=== PATIENT | male | born 1970 | race Hispanic/Latino ===

== ENCOUNTER 2021-05-08 15:32 | Inpatient (IN) | payer SELFPAY ==
[~2021-05-08] VITALS: Ht 152.4 cm; Wt 68.0 kg
[2021-05-08 15:34] VITALS: BP 129/90
[2021-05-08] MEDS ORDERED: ONDANSETRON 4MG INJ IVP ONE (16:00)
[2021-05-08] MEDS ORDERED: MORPHINE 4 MG SYG IV ONE ×2 (16:00→19:30)
[2021-05-08 16:25] LABS: BASOPHILS % (AUTO) 0.3 % (0.0-5.0); EOSINOPHILS % (AUTO) 0.1 % (0.0-8.0); HEMATOCRIT 47.2 % (42-54); LYMPHOCYTES % (AUTO) 3.3 % (21.0-51.0); MEAN CORPUSCULAR HEMOGLOBIN 32.7 pg (27.0-33.0); MEAN CORPUSCULAR HGB CONC 34.1 g/dL (32.0-36.0); MEAN CORPUSCULAR VOLUME 95.9 fL (79-99); MONOCYTES % (AUTO) 4.2 % (3.0-13.0); NEUTROPHILS % (AUTO) 91.5 % (40.0-77.0); PLATELET COUNT (AUTO) 264 K/uL (130-400); RED BLOOD CELL COUNT(AUTO) 4.92 MIL/uL (4.50-6.20); RED CELL DISTRIBUTION WIDTH 11.9 % (11.0-15.5); WHITE BLOOD COUNT (AUTO) 16.6 K/uL (4.8-10.8)
[2021-05-08 16:43] LABS: POTASSIUM 3.5 mmol/L (3.5-5.1)
[2021-05-08 16:48] LABS: ALBUMIN 3.6 g/dL (3.5-5.0); BILIRUBIN,TOTAL 0.6 mg/dL (0.2-1.0); TOTAL PROTEIN, SERUM 8.5 g/dL (6.0-8.3)
[2021-05-08] MEDS ORDERED: IOHEXOL-350 75 ML VIAL IV ONE (16:48)
[2021-05-08 17:02] LABS: APPEARANCE,URINE Clear (CLEAR); BILIRUBIN,URINE Small (NEGATIVE); COLOR,URINE Dark Yellow (YELLOW); GLUCOSE, URINE (UA) Negative (NEGATIVE); KETONES,URINE >=160 mg/dL (NEGATIVE); LEUKOCYTE ESTERASE ,URINE Small (NEGATIVE); NITRATE,URINE Negative (NEGATIVE); OCCULT BLOOD,URINE Trace (NEGATIVE); PH,URINE 5.5 (5.0-8.0); PROTEIN,URINE 300 mg/dL (NEGATIVE)
[2021-05-08 17:10] LABS: AMPHET/METH SCREEN,URINE NEGATIVE (NEGATIVE); BARBITURATE SCREEN, URINE NEGATIVE (NEGATIVE); BENZODIAZEPINES SCREEN,URINE POSITIVE (NEGATIVE); CANNABINOID SCREEN,URINE POSITIVE (NEGATIVE); COCAINE SCREEN,URINE NEGATIVE (NEGATIVE); OPIATE SCREEN,URINE POSITIVE (NEGATIVE); PHENCYCLIDINE SCREEN,URINE NEGATIVE (NEGATIVE)
[2021-05-08 17:19] LABS: BACTERIA,URINE Few /HPF (None Seen); RBC,URINE None Seen /HPF (0-1); SQUAMOUS EPITHELIAL CELL,UR None Seen /HPF (0-2); WBC,URINE 0-1 /HPF (0-1)
[2021-05-08] MEDS ORDERED: ZOSYN 3.375GM+NS 50ML 3.38 GM in 0.9%NACL 50ML 50 ML IV SCH ×2 (18:30→19:30)
[2021-05-08 18:58] VITALS: BP 154/96
[2021-05-08] MEDS ORDERED: ONDANSETRON 4MG INJ IV PRN (19:00)
[2021-05-08] MEDS ORDERED: ZOSYN 3.375GM +NS 50ML IV ONE (19:00)
[2021-05-08] MEDS ORDERED: 0.9%NACL 50ML 50 ML IV ONE (19:00)
[2021-05-08] MEDS ORDERED: NITROGLYCERIN 0.4 MG SL TAB SL PRN (19:00)
[2021-05-08] MEDS ORDERED: 0.9%NACL 1000ML 1,000 ML IV SCH (19:00)
[2021-05-08 19:09] VITALS: BP 131/83
[2021-05-08 20:00] LABS: CHOLESTEROL 162 mg/dL (<200); HDL CHOLESTEROL 25 mg/dL (29-71); LDL DIRECT 97 mg/dL (0-99); TRIGLYCERIDES 118 mg/dL (30-200)
[2021-05-08] MEDS ORDERED: MORPHINE 4 MG SYG ONE (20:49)
[2021-05-08] MEDS: LACTATED RINGERS 1000ML 1,000 ML IV SCH (20:58)
[2021-05-08] MEDS ORDERED: 0.9%NACL 1000ML 1,000 ML IV ONE (21:00)
[2021-05-08] MEDS: FAMOTIDINE 20MG VIAL IV SCH (21:10)
[2021-05-08] MEDS ORDERED: METRONIDAZOLE 500MG/100ML BAG 100 ML IVPB SCH (22:00)
[2021-05-08] MEDS: ZOSYN 3.375GM +NS 50ML IV SCH ×2 (22:24→22:25)
[2021-05-08 22:26] VITALS: BP 130/81
[2021-05-09] MEDS: MORPHINE 2 MG SYG IV PRN ×2 (00:19→20:55)
[2021-05-09 00:34] VITALS: BP 144/97
[2021-05-09] MEDS: ZOSYN 3.375GM +NS 50ML IV SCH ×3 (03:29→20:56)
[2021-05-09 04:31] VITALS: BP 143/95
[2021-05-09 08:00] VITALS: BP 134/91
[2021-05-09] MEDS: FAMOTIDINE 20MG VIAL IV SCH ×2 (08:58→20:55)
[2021-05-09 10:19] LABS: BASOPHILS % (AUTO) 0.2 % (0.0-5.0); EOSINOPHILS % (AUTO) 0.1 % (0.0-8.0); HEMATOCRIT 45.4 % (42-54); LYMPHOCYTES % (AUTO) 6.1 % (21.0-51.0); MEAN CORPUSCULAR HEMOGLOBIN 31.9 pg (27.0-33.0); MEAN CORPUSCULAR HGB CONC 33.7 g/dL (32.0-36.0); MEAN CORPUSCULAR VOLUME 94.6 fL (79-99); MONOCYTES % (AUTO) 7.6 % (3.0-13.0); NEUTROPHILS % (AUTO) 84.7 % (40.0-77.0); PLATELET COUNT (AUTO) 290 K/uL (130-400); WHITE BLOOD COUNT (AUTO) 17.4 K/uL (4.8-10.8)
[2021-05-09 10:26] LABS: POTASSIUM 3.9 mmol/L (3.5-5.1)
[2021-05-09 10:30] LABS: MAGNESIUM 2.1 mg/dL (1.80-2.40); PHOSPHORUS 3.3 mg/dL (2.5-4.9)
[2021-05-09 11:26] LABS: ERYTHROCYTE SEDIMENTATION RATE 63 MM/HR (0-15)
[2021-05-09 11:49] VITALS: BP 129/94
[2021-05-09] MEDS: FLUCONAZOLE 200 MG/NS 100 ML 100 ML IV SCH (15:06)
[2021-05-09 15:59] VITALS: BP 116/87
[2021-05-09 19:57] VITALS: BP 138/99
[2021-05-09] MEDS: LACTATED RINGERS 1000ML 1,000 ML IV SCH ×2 (20:56→22:51)
[2021-05-10] VITALS (7 sets, daily range): BP systolic 123–147; BP diastolic 85–99
[2021-05-10] MEDS: ZOSYN 3.375GM +NS 50ML IV SCH ×3 (04:39→21:05)
[2021-05-10] MEDS: FAMOTIDINE 20MG VIAL IV SCH ×2 (09:17→21:05)
[2021-05-10 11:05] LABS: HEMATOCRIT 41.6 % (42-54); MEAN CORPUSCULAR HGB CONC 33.9 g/dL (32.0-36.0); MEAN CORPUSCULAR VOLUME 94.5 fL (79-99); PLATELET COUNT (AUTO) 317 K/uL (130-400); RED CELL DISTRIBUTION WIDTH 12.1 % (11.0-15.5); WHITE BLOOD COUNT (AUTO) 10.6 K/uL (4.8-10.8)
[2021-05-10 12:21] LABS: EOSINOPHILS % (MANUAL) 3 % (1-6); LYMPHOCYTES % (MANUAL) 7 % (22-44); MAN.DIFF COMMENT-IMPRESSION MANUAL DIFFERENTIAL; MONOCYTES % (MANUAL) 9 % (2-9); PLATELET MORPHOLOGY COMMENT ADEQUATE; SEGMENTED NEUTROPHILS % 81 % (40-70)
[2021-05-10] MEDS: FLUCONAZOLE 200 MG/NS 100 ML 100 ML IV SCH (14:16)
[2021-05-10] MEDS: MORPHINE 2 MG SYG IV PRN (21:06)
[2021-05-11] MEDS: LACTATED RINGERS 1000ML 1,000 ML IV SCH ×2 (01:44→14:31)
[2021-05-11] MEDS: MORPHINE 2 MG SYG IV PRN ×4 (02:11→21:10)
[2021-05-11 04:00] VITALS: BP 117/78
[2021-05-11] MEDS: ZOSYN 3.375GM +NS 50ML IV SCH ×3 (05:13→21:10)
[2021-05-11 05:59] LABS: BASOPHILS % (AUTO) 0.6 % (0.0-5.0); HEMATOCRIT 41.6 % (42-54); LYMPHOCYTES % (AUTO) 21.2 % (21.0-51.0); MEAN CORPUSCULAR HEMOGLOBIN 32.8 pg (27.0-33.0); MEAN CORPUSCULAR HGB CONC 33.7 g/dL (32.0-36.0); MEAN CORPUSCULAR VOLUME 97.4 fL (79-99); MONOCYTES % (AUTO) 11.1 % (3.0-13.0); NEUTROPHILS % (AUTO) 63.5 % (40.0-77.0); PLATELET COUNT (AUTO) 332 K/uL (130-400); RED BLOOD CELL COUNT(AUTO) 4.27 MIL/uL (4.50-6.20); RED CELL DISTRIBUTION WIDTH 12.3 % (11.0-15.5); WHITE BLOOD COUNT (AUTO) 7.8 K/uL (4.8-10.8)
[2021-05-11 06:13] LABS: ALBUMIN 2.6 g/dL (3.5-5.0); BILIRUBIN,TOTAL 0.4 mg/dL (0.2-1.0); POTASSIUM 3.9 mmol/L (3.5-5.1); TOTAL PROTEIN, SERUM 7.3 g/dL (6.0-8.3)
[2021-05-11 08:00] VITALS: BP 134/69
[2021-05-11] MEDS: FAMOTIDINE 20MG VIAL IV SCH ×2 (09:32→21:10)
[2021-05-11 12:00] VITALS: BP 145/90
[2021-05-11] MEDS: FLUCONAZOLE 200 MG/NS 100 ML 100 ML IV SCH (14:31)
[2021-05-11 16:00] VITALS: BP 147/104
[2021-05-11 20:10] VITALS: BP 140/73
[2021-05-11 23:58] VITALS: BP 143/83
[2021-05-12 03:41] VITALS: BP 127/88
[2021-05-12] MEDS: LACTATED RINGERS 1000ML 1,000 ML IV SCH ×2 (03:50→18:07)
[2021-05-12] MEDS: MORPHINE 2 MG SYG IV PRN ×2 (04:52→09:53)
[2021-05-12 05:28] LABS: BASOPHILS % (AUTO) 0.7 % (0.0-5.0); EOSINOPHILS % (AUTO) 2.8 % (0.0-8.0); HEMATOCRIT 43.9 % (42-54); LYMPHOCYTES % (AUTO) 23.1 % (21.0-51.0); MEAN CORPUSCULAR HEMOGLOBIN 31.9 pg (27.0-33.0); MEAN CORPUSCULAR VOLUME 96.5 fL (79-99); MONOCYTES % (AUTO) 13.6 % (3.0-13.0); NEUTROPHILS % (AUTO) 59.2 % (40.0-77.0); PLATELET COUNT (AUTO) 324 K/uL (130-400); RED BLOOD CELL COUNT(AUTO) 4.55 MIL/uL (4.50-6.20); RED CELL DISTRIBUTION WIDTH 12.2 % (11.0-15.5); WHITE BLOOD COUNT (AUTO) 8.2 K/uL (4.8-10.8)
[2021-05-12 05:51] LABS: ALBUMIN 2.7 g/dL (3.5-5.0); BILIRUBIN,TOTAL 0.4 mg/dL (0.2-1.0); POTASSIUM 3.9 mmol/L (3.5-5.1); TOTAL PROTEIN, SERUM 7.4 g/dL (6.0-8.3)
[2021-05-12 07:30] VITALS: BP 153/91
[2021-05-12] MEDS: FAMOTIDINE 20MG VIAL IV SCH ×2 (09:50→21:20)
[2021-05-12 11:00] VITALS: BP 140/90
[2021-05-12] MEDS: FLUCONAZOLE 200 MG/NS 100 ML 100 ML IV SCH (13:16)
[2021-05-12] MEDS: ZOSYN 3.375GM +NS 50ML IV SCH ×2 (13:17→21:20)
[2021-05-12 16:00] VITALS: BP 140/101
[2021-05-12 19:51] VITALS: BP 149/98
[2021-05-12 23:33] VITALS: BP 120/84
[2021-05-13 03:32] VITALS: BP 114/79
[2021-05-13] MEDS: ZOSYN 3.375GM +NS 50ML IV SCH ×3 (04:50→20:05)
[2021-05-13 05:47] LABS: BASOPHILS % (AUTO) 0.8 % (0.0-5.0); EOSINOPHILS % (AUTO) 4.4 % (0.0-8.0); HEMATOCRIT 42.8 % (42-54); LYMPHOCYTES % (AUTO) 27.2 % (21.0-51.0); MEAN CORPUSCULAR HEMOGLOBIN 31.8 pg (27.0-33.0); MEAN CORPUSCULAR HGB CONC 33.2 g/dL (32.0-36.0); MONOCYTES % (AUTO) 11.1 % (3.0-13.0); NEUTROPHILS % (AUTO) 55.8 % (40.0-77.0); PLATELET COUNT (AUTO) 354 K/uL (130-400); RED BLOOD CELL COUNT(AUTO) 4.46 MIL/uL (4.50-6.20); WHITE BLOOD COUNT (AUTO) 7.7 K/uL (4.8-10.8)
[2021-05-13] MEDS: LACTATED RINGERS 1000ML 1,000 ML IV SCH ×2 (05:59→20:05)
[2021-05-13 06:04] LABS: ALBUMIN 2.5 g/dL (3.5-5.0); BILIRUBIN,TOTAL 0.3 mg/dL (0.2-1.0); CREATININE 0.9 mg/dL (0.5-1.5); POTASSIUM 3.9 mmol/L (3.5-5.1); TOTAL PROTEIN, SERUM 7.2 g/dL (6.0-8.3)
[2021-05-13 07:30] VITALS: BP 113/69
[2021-05-13] MEDS ORDERED: DIATR MEGLU/DIATRIZOATE SODIUM 30 ML BOTTLE ONE (07:52)
[2021-05-13] MEDS: FAMOTIDINE 20MG VIAL IV SCH ×2 (09:00→20:05)
[2021-05-13] MEDS: LISINOPRIL 20 MG TABLET PO SCH (09:00)
[2021-05-13 11:00] VITALS: BP 129/76
[2021-05-13] MEDS: FLUCONAZOLE 200 MG/NS 100 ML 100 ML IV SCH (12:24)
[2021-05-13] MEDS ORDERED: IOHEXOL-350 75 ML VIAL IV ONE (13:17)
[2021-05-13] MEDS: MORPHINE 2 MG SYG IV PRN ×2 (14:41→20:05)
[2021-05-13 16:00] VITALS: BP 148/107
[2021-05-13 20:01] VITALS: BP 143/90
[2021-05-13 23:31] VITALS: BP 153/99
[2021-05-14] VITALS (11 sets, daily range): BP systolic 113–148; BP diastolic 61–98
[2021-05-14] MEDS: ZOSYN 3.375GM +NS 50ML IV SCH ×3 (05:42→22:07)
[2021-05-14 05:50] LABS: EOSINOPHILS % (AUTO) 4.7 % (0.0-8.0); HEMATOCRIT 45.5 % (42-54); LYMPHOCYTES % (AUTO) 32.1 % (21.0-51.0); MEAN CORPUSCULAR HEMOGLOBIN 31.6 pg (27.0-33.0); MONOCYTES % (AUTO) 8.8 % (3.0-13.0); NEUTROPHILS % (AUTO) 52.8 % (40.0-77.0); PLATELET COUNT (AUTO) 477 K/uL (130-400); RED BLOOD CELL COUNT(AUTO) 4.74 MIL/uL (4.50-6.20); WHITE BLOOD COUNT (AUTO) 7.9 K/uL (4.8-10.8)
[2021-05-14 06:17] LABS: ALBUMIN 3.1 g/dL (3.5-5.0); BILIRUBIN,TOTAL 0.4 mg/dL (0.2-1.0); POTASSIUM 3.2 mmol/L (3.5-5.1); TOTAL PROTEIN, SERUM 8.2 g/dL (6.0-8.3)
[2021-05-14] MEDS: LISINOPRIL 20 MG TABLET PO SCH (08:40)
[2021-05-14] MEDS: FAMOTIDINE 20MG VIAL IV SCH ×2 (08:41→22:07)
[2021-05-14] MEDS ORDERED: FENTANYL CITRATE PF 50 MCG/1 ML 2ML VIAL ONE (09:46)
[2021-05-14] MEDS ORDERED: MIDAZOLAM HCL 1 MG/ML 2ML VIAL ONE (09:46)
[2021-05-14 10:00] LABS: INR 1.07 (0.85-1.15); PROTHROMBIN TIME 11.6 SEC (9.6-11.6)
[2021-05-14 10:01] LABS: PARTIAL THROMBOPLASTIN TIME 27.2 SEC (26.3-35.5)
[2021-05-14] MEDS ORDERED: HYDROMORPHONE 0.5 MG SYG (0.5MG/0.5ML) ONE (12:38)
[2021-05-14] MEDS: FLUCONAZOLE 200 MG/NS 100 ML 100 ML IV SCH (13:43)
[2021-05-14] MEDS: LACTATED RINGERS 1000ML 1,000 ML IV SCH ×2 (16:25→22:18)
[2021-05-14] MEDS: MORPHINE 2 MG SYG IVP PRN (16:26)
[2021-05-14 16:32] LABS: BF EOSINOPHIL 1 %; BF LYMPHOCYTE 3 %
[2021-05-14 16:35] LABS: APPEARANCE BODY FLUID TURBID (CLEAR); SPECIMENTYPE,BODY FLUID ASPIRATE
[2021-05-14 16:36] LABS: COLOR,BODY FLUID GREEN (LT YELLOW); TOTAL VOLUME,BODY FLUID 2 mL
[2021-05-14 16:37] LABS: BODY FLUID RBC 4250 /cu. mm.; BODY FLUID WBC 25700 /cu. mm.
[2021-05-14] MEDS ORDERED: HYDROMORPHONE 0.5 MG SYG (0.5MG/0.5ML) IVP PRN (20:30)
[2021-05-15] VITALS: BP 133/87
[2021-05-15 04:00] VITALS: BP 137/88
[2021-05-15 05:22] LABS: BASOPHILS % (AUTO) 0.8 % (0.0-5.0); EOSINOPHILS % (AUTO) 3.8 % (0.0-8.0); HEMATOCRIT 42.1 % (42-54); LYMPHOCYTES % (AUTO) 25.7 % (21.0-51.0); MEAN CORPUSCULAR HEMOGLOBIN 32.1 pg (27.0-33.0); MEAN CORPUSCULAR HGB CONC 33.7 g/dL (32.0-36.0); MONOCYTES % (AUTO) 10.5 % (3.0-13.0); NEUTROPHILS % (AUTO) 58.5 % (40.0-77.0); PLATELET COUNT (AUTO) 443 K/uL (130-400); RED BLOOD CELL COUNT(AUTO) 4.43 MIL/uL (4.50-6.20); RED CELL DISTRIBUTION WIDTH 11.9 % (11.0-15.5); WHITE BLOOD COUNT (AUTO) 7.1 K/uL (4.8-10.8)
[2021-05-15 05:30] LABS: POTASSIUM 4.4 mmol/L (3.5-5.1)
[2021-05-15] MEDS: ZOSYN 3.375GM +NS 50ML IV SCH ×3 (05:30→19:30)
[2021-05-15 07:30] VITALS: BP 140/89
[2021-05-15] MEDS: LISINOPRIL 20 MG TABLET PO SCH (10:13)
[2021-05-15] MEDS: FAMOTIDINE 20MG VIAL IV SCH ×2 (10:13→19:30)
[2021-05-15] MEDS: MORPHINE 2 MG SYG IVP PRN ×2 (10:52→16:05)
[2021-05-15 11:00] VITALS: BP 143/92
[2021-05-15] MEDS: LACTATED RINGERS 1000ML 1,000 ML IV SCH (12:09)
[2021-05-15] MEDS: FLUCONAZOLE 200 MG/NS 100 ML 100 ML IV SCH (13:49)
[2021-05-15 16:00] VITALS: BP 146/87
[2021-05-15 19:47] VITALS: BP 132/84
[2021-05-16] VITALS: BP 133/88
[2021-05-16] MEDS: ZOSYN 3.375GM +NS 50ML IV SCH ×2 (03:45→13:46)
[2021-05-16] MEDS: LACTATED RINGERS 1000ML 1,000 ML IV SCH ×2 (03:45→14:10)
[2021-05-16 04:00] VITALS: BP 133/90
[2021-05-16 07:49] VITALS: BP 125/81
[2021-05-16] MEDS: FAMOTIDINE 20MG VIAL IV SCH (09:17)
[2021-05-16] MEDS: LISINOPRIL 20 MG TABLET PO SCH (09:18)
[2021-05-16 11:06] VITALS: BP 134/90
[2021-05-16] MEDS ORDERED: AMOX-429 PO (11:54)
[2021-05-16] MEDS ORDERED: FLUC200T8 PO (11:54)
[2021-05-16] MEDS: FLUCONAZOLE 200 MG/NS 100 ML 100 ML IV SCH (13:46)
[2021-05-17] MEDS ORDERED: AMOX-429 PO (16:46)
[2021-05-17] MEDS ORDERED: FLUC200T8 PO (16:46)
== END 2021-05-16 18:20 | disposition home or self-care (01) | DRG 391 ==
LOC: EDH 15:32 → EDHIP 15:33 → 3BH 23:44
PROVIDERS: ADMIT Internal Medicine; ATTEND Internal Medicine
PROC: 0D9670Z Drainage of Stomach with Drainage Device, Via Natural or Artificial Opening (ICD-10-PCS; principal; 2021-05-08)
PROC: 0D9W30Z Drainage of Peritoneum with Drainage Device, Percutaneous Approach (ICD-10-PCS; 2021-05-14)
DX: K57.80 Diverticulitis of intestine, part unspecified, with perforation and abscess without bleeding (principal); K65.1 Peritoneal abscess; K65.9 Peritonitis, unspecified; D72.829 Elevated white blood cell count, unspecified; F17.200 Nicotine dependence, unspecified, uncomplicated; Z20.822 Contact with and (suspected) exposure to COVID-19; K76.0 Fatty (change of) liver, not elsewhere classified; K57.20 Diverticulitis of large intestine with perforation and abscess without bleeding; Z80.1 Family history of malignant neoplasm of trachea, bronchus and lung; Z82.49 Family history of ischemic heart disease and other diseases of the circulatory system
CPT/HCPCS: 10030; 36415; 74177; 76705; 77012; 80048; 80053; 80061; 80305; 81001; 83036; 83605; 83690; 83735; 84100; 84145; 85025; 85610; 85651; 85730; 86140; 87040; 87071; 87205; 87635; 89051; 99152; 99153; 99291; C1729; C9803; G0378; J1170; J1450; J2250; J2270; J2405; J2543; J3010; J3490; J7120; Q9963; Q9967

== ENCOUNTER 2021-05-20 09:13 | Day surgery (SDC) | payer SELFPAY ==
[~2021-05-20 09:13] MED LIST: AMOX-429 PO; FLUC200T8 PO
[2021-05-20] MEDS ORDERED: 0.9%NACL 1000ML 1,000 ML IV ONE (10:56)
[2021-05-20] MEDS ORDERED: IODIXANOL 320 MG/ML 100 ML VIAL ONE (11:44)
[2021-05-20] MEDS ORDERED: LIDOCAINE HCL 1% MDV 50ML VIAL ONE (11:44)
== END 2021-05-20 14:45 | disposition home or self-care (01) ==
LOC: CLH 09:13 → DAH 09:13 → CLH 14:45
PROVIDERS: ATTEND Hospitalist
DX: R10.9 Unspecified abdominal pain (principal); K63.2 Fistula of intestine; Z20.822 Contact with and (suspected) exposure to COVID-19; L02.211 Cutaneous abscess of abdominal wall; R14.0 Abdominal distension (gaseous); D72.829 Elevated white blood cell count, unspecified; Z87.19 Personal history of other diseases of the digestive system; Z90.49 Acquired absence of other specified parts of digestive tract
CPT/HCPCS: 49424; 76080; A4215; A4216; A4221; A4222; A4223; J1644; J3490; J7030; Q9967

== ENCOUNTER → 2021-06-03 | Outpatient (CLI) | payer SELFPAY ==
[~2021-06-03] MED LIST changes: +0.9%NACL 1000ML 1,000 ML IV ONE; -AMOX-429 PO; -FLUC200T8 PO
[2021-06-03 07:42] LABS: HEMATOCRIT 42.6 % (42-54); MEAN CORPUSCULAR HEMOGLOBIN 31.3 pg (27.0-33.0); MEAN CORPUSCULAR HGB CONC 32.9 g/dL (32.0-36.0); MEAN CORPUSCULAR VOLUME 95.3 fL (79-99); PLATELET COUNT (AUTO) 345 K/uL (130-400); RED BLOOD CELL COUNT(AUTO) 4.47 MIL/uL (4.50-6.20); RED CELL DISTRIBUTION WIDTH 12.1 % (11.0-15.5); WHITE BLOOD COUNT (AUTO) 6.5 K/uL (4.8-10.8)
[2021-06-03 07:58] LABS: INR 0.92 (0.85-1.15); PROTHROMBIN TIME 10.1 SEC (9.6-11.6)
[2021-06-03 07:59] LABS: PARTIAL THROMBOPLASTIN TIME 27.9 SEC (26.3-35.5)
[2021-06-03 08:03] LABS: CREATININE 0.8 mg/dL (0.5-1.5)
[2021-06-03 08:09] LABS: EOSINOPHILS % (MANUAL) 6 % (1-6); LYMPHOCYTES % (MANUAL) 29 % (22-44); MAN.DIFF COMMENT-IMPRESSION MANUAL DIFFERENTIAL; MONOCYTES % (MANUAL) 9 % (2-9); PLATELET MORPHOLOGY COMMENT ADEQUATE; REACTIVE LYMPHOCYTES 16 % (0-0); SEGMENTED NEUTROPHILS % 40 % (40-70)
== END | disposition home or self-care (01) ==
LOC: DAH 07:14 → CLH 07:14 → EDSTATUS 09:00 → CLH 10:16 → DAH 10:16
PROVIDERS: ATTEND Radiology Diagnostic Radiology
DX: K57.92 Diverticulitis of intestine, part unspecified, without perforation or abscess without bleeding (principal)
CPT/HCPCS: 36415; 80048; 85025; 85610; 85730; A4215; A4221; A4222; A4223; J7030

== ENCOUNTER 2023-03-30 14:07 | Emergency (ER) | payer BC ==
[~2023-03-30] VITALS: Ht 152.4 cm; Wt 60.3 kg
[2023-03-30] MEDS ORDERED: 0.9%NACL 1000ML 1,000 ML IV ONE (16:00)
[2023-03-30] MEDS ORDERED: KETOROLAC 30MG VIAL (30MG/ML) IVP ONE (16:00)
[2023-03-30 16:05] LABS: APPEARANCE,URINE CLEAR (CLEAR); BILIRUBIN,URINE NEGATIVE (NEGATIVE); COLOR,URINE YELLOW (YELLOW); GLUCOSE, URINE (UA) NEGATIVE (NEGATIVE); KETONES,URINE NEGATIVE (NEGATIVE); LEUKOCYTE ESTERASE ,URINE 25 Leu/uL (NEGATIVE); NITRATE,URINE NEGATIVE (NEGATIVE); OCCULT BLOOD,URINE NEGATIVE (NEGATIVE); PROTEIN,URINE 20 mg/dL (NEGATIVE); UROBILINOGEN,URINE 0.2 mg/dL (0.2-1.0)
[2023-03-30 16:20] LABS: ADD UA MICROSCOPIC YES
[2023-03-30 16:26] LABS: MUCUS,URINE RARE LPF (None Seen); RBC,URINE 0-1 /HPF (0-1)
[2023-03-30 16:32] LABS: BASOPHILS # (AUTO) 0.05 K/uL (0.00-0.20); BASOPHILS % (AUTO) 0.7 % (0.0-5.0); EOSINOPHILS # (AUTO) 0.11 K/uL (0.00-0.70); EOSINOPHILS % (AUTO) 1.6 % (0.0-8.0); HEMATOCRIT 44.6 % (42-54); IMMATURE GRANULOCYTE ABSOLUTE 0.02 K/uL (0-1); LYMPHOCYTES % (AUTO) 29.3 % (21.0-51.0); MEAN CORPUSCULAR HEMOGLOBIN 35.3 pg (27.0-33.0); MEAN CORPUSCULAR HGB CONC 34.3 g/dL (32.0-36.0); MEAN CORPUSCULAR VOLUME 102.8 fL (79-99); MONOCYTES # (AUTO) 0.6 K/uL (0.1-1.0); NEUTROPHILS # (AUTO) 4.1 K/uL (1.8-7.7); NEUTROPHILS % (AUTO) 59.1 % (40.0-77.0); PLATELET COUNT (AUTO) 348 K/uL (130-400); RED BLOOD CELL COUNT(AUTO) 4.34 MIL/uL (4.50-6.20); RED CELL DISTRIBUTION WIDTH 12.4 % (11.0-15.5); WHITE BLOOD COUNT (AUTO) 6.9 K/uL (4.8-10.8)
[2023-03-30 16:41] LABS: CREATININE 0.8 mg/dL (0.5-1.5); POTASSIUM 4.1 mmol/L (3.5-5.1)
[2023-03-30 16:45] LABS: ALBUMIN 4.7 g/dL (3.5-5.0); BILIRUBIN,TOTAL 0.8 mg/dL (0.2-1.0); TOTAL PROTEIN, SERUM 8.5 g/dL (6.0-8.3)
[2023-03-30] MEDS ORDERED: IOHEXOL-350 75 ML VIAL IV ONE (16:59)
[2023-03-30 17:32] VITALS: BP 143/83; PULSE 63; RESP 16; O2SAT 99
== END 2023-03-30 18:26 | disposition home or self-care (01) ==
LOC: EDH 14:07
DX: R10.9 Unspecified abdominal pain (principal)
CPT/HCPCS: 99284; 74177; 96374; 80053; 85025; 81001; 36415; J7030; J1885; Q9967

== ENCOUNTER 2024-08-09 17:56 | Emergency (ER) | payer SELFPAY ==
[~2024-08-09] VITALS: Ht 165.1 cm; Wt 62.1 kg
--- NOTE | 2024-08-09 18:28 | ERN ---
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 Patient reports sore throat for the past 2 days worsening today, but denies any abdominal pain or chest pain at this time. Patient states he was seen by PCP and was prescribed a Z-Sumeet 3 days ago, and states that when he took the prescription today he felt his body was on fire. No other medical or surgical history mentioned. Allergies: Coded Allergies: No Known Drug Allergies (Unverified Allergy, Unknown, 05/08/21) No Known Food Allergies (Unverified Allergy, Unknown, 05/08/21) Home Meds No Active Prescriptions or Reported Meds Past Medical History Past Medical History: Diverticulitis Additional Past Medical Hx: RUPTURED BOWEL Surgical History: None Social History: Negative, Lives with family Review of System Dictation Constitutional: Positive for weakness Negative for fever,chills, and weight loss Eyes: Negative for injury, pain,redness, and discharge ENT: Positive for sore throat Negative for injury or swelling Cardiovascular: Negative for chest pain, palpitations, and edema Respiratory: Negative for shortness of breath, cough, and wheezing, Abdomen/GI: Negative for abdominal pain, nausea, vomiting, diarrhea, and constipation Back: Negative for injury and pain : Negative for injury, bleeding and discharge MS/Extremity: Negative for injury and deformity Skin: Negative for rash, and discoloration Neuro: Negative for headache, weakness, numbness, tingling, and seizure Psych: Negative for suicide ideation, homicidal ideation, and hallucinations Initial Vital Sign VS Vital Signs Date Time Temp Pulse Resp B/P (MAP) Pulse Ox O2 Delivery O2 Flow Rate FiO2 08/09/24 17:57 98.2 102 18 137/85 100 Room Air 08/09/24 18:09 0 21 Physical Exam Dictation General: awake, alert, NAD Head/Face: Normocephalic, atraumatic Eyes: PERRL, EOMI, vision at baseline ENT: oral cavity clear, TMs clear, no signs of infection Neck: Trachea midline, supple, no nuchal rigidity Cardiovascular: Tachycardic No MRGs, no JVD Respiratory: CTAB, no respiratory distress, No rales or wheezes Abdomen: Soft, non-tender, non-distended, normal bowel sounds, no guarding or rebound. Skin: Warm, dry, normal turgor, no rash MS/Extremity: Pulses equal, no cyanosis, neurovascular intact, FROM Neuro: COAx4, GCS 15, strength 5/5, CN 2-12 intact, normal cerebellar exam, normal gait, Psych: Normal behavior, mood, and affect normal Results (Laboratory/Radiology) Laboratory/Radiology Laboratory Tests Test 08/09/24 18:43 08/09/24 19:14 White Blood Count 12.6 K/uL (4.8-10.8) H Red Blood Count 4.59 MIL/uL (4.50-6.20) Hemoglobin 15.0 g/dL (14.0-18.0) Hematocrit 44.6 % (42-54) Mean Corpuscular Volume 97.2 fL (79-99) Mean Corpuscular Hemoglobin 32.7 pg (27.0-33.0) Mean Corpuscular Hemoglobin Concent 33.6 g/dL (32.0-36.0) Red Cell Distribution Width 11.7 % (11.0-15.5) Platelet Count 418 K/uL (130-400) H Mean Platelet Volume 9.0 fL (7.5-10.5) Immature Granulocyte % (Auto) 0.4 % (0-1) Neutrophils (%) (Auto) 85.4 % (40.0-77.0) H Lymphocytes (%) (Auto) 7.3 % (21.0-51.0) L Monocytes (%) (Auto) 6.5 % (3.0-13.0) Eosinophils (%) (Auto) 0.2 % (0.0-8.0) Basophils (%) (Auto) 0.2 % (0.0-5.0) Neutrophils # (Auto) 10.7 K/uL (1.8-7.7) H Lymphocytes # (Auto) 0.9 K/uL (1.0-4.8) L Monocytes # (Auto) 0.8 K/uL (0.1-1.0) Eosinophils # (Auto) 0.03 K/uL (0.00-0.70) Basophils # (Auto) 0.03 K/uL (0.00-0.20) Absolute Immature Granulocyte (auto 0.05 K/uL (0-1) Nucleated Red Blood Cells 0.0 % (0.0-0.19) White Cell Morphology Comment See comments Sodium Level 137 mmol/L (136-145) Potassium Level 3.9 mmol/L (3.5-5.1) Chloride Level 100 mmol/L (101-111) L Carbon Dioxide Level 31 mmol/L (21-32) Blood Urea Nitrogen 10 mg/dL (7-18) Creatinine 0.9 mg/dL (0.5-1.3) Glomerular Filtration Rate Calc 103 mL/min (>90) Random Glucose 116 mg/dL (70-105) H Lactic Acid Level 1.8 mmol/L (0.8-2.5) Total Calcium 9.3 mg/dL (8.5-10.1) Total Bilirubin 0.4 mg/dL (0.2-1.0) Direct Bilirubin 0.1 mg/dL (0.0-0.3) Aspartate Amino Transf (AST/SGOT) 22 U/L (10-37) Alanine Aminotransferase (ALT/SGPT) 49 U/L (12-78) Alkaline Phosphatase 92 U/L (50-136) Troponin I High Sensitivity 23 ng/L (4-75) Total Protein 8.8 g/dL (6.0-8.3) H Albumin 3.9 g/dL (3.5-5.0) Influenza Type A Antigen Negative For Type A Influenza Type B Antigen Negative For Type B SARS-CoV-2 Antigen (Rapid) PRESUMPTIVE NEGATIVE Group A Streptococcus Rapid negative (NEGATIVE) ED Course ED Course Orders Procedure Category Date Status Time 12 Lead Ekg Tracing- EKG 08/09/24 Complete Technical 18:21 Basic Metabolic Panel LAB 08/09/24 Complete 18:21 Cbc With Differential LAB 08/09/24 Complete 18:21 Hepatic Function Panel LAB 08/09/24 Complete 18:21 Lactic Acid LAB 08/09/24 Complete 18:21 Blood Cult DAYANA 08/09/24 In Process 18:21 Troponin I High LAB 08/09/24 Complete Sensitivity 18:21 Urinalysis Profile LAB 08/09/24 Logged 18:21 Chest 1vw RAD 08/09/24 Resulted 18:21 Influenza Type A & B, LAB 08/09/24 Complete Rapid 18:21 Covid19 (Sars Antigen LAB 08/09/24 Complete Rapid) 18:21 0.9%Nacl 1000ml (Ns PHA 08/09/24 Complete 1000ml) 18:30 Rapid (Group A Strep) LAB 08/09/24 Complete 19:15 Current Medications Medications (Trade) Dose Ordered Sig/Noemí Route PRN Reason Start Time Stop Time Status Last Admin Dose Admin Sodium Chloride 1,000 ml @ 0 mls/hr ONCE ONCE IV 08/09/24 18:30 08/09/24 18:31 DC 08/09/24 19:01 Vital Signs Date Time Temp Pulse Resp B/P (MAP) Pulse Ox O2 Delivery O2 Flow Rate FiO2 08/09/24 19:42 99.3 100 18 137/90 99 Room Air* 0 21 08/09/24 18:09 99.5 103 18 137/90 96 Room Air* 0 21 08/09/24 17:57 98.2 102 18 137/85 100 Room Air Medical Decision Making MDM MDM: Differential diagnosis: Weakness, dehydration, strep Previous outside records reviewed: Old ER visits. Need for hospitalization: Patient does not meet criteria for hospitalization. Need for emergency major/minor surgery: No Patient's prior external medical records from other ER visits were reviewed by me as indicated. Prior testing and results from previous visits were reviewed. Prior tests were taken into account with medical decision making and resource utilization, independent historian/historians were used to obtain complete medical history. I independently interpreted the test that were performed, results were reviewed by me and considered findings on radiology if ordered. Medical management and examination interpretation discussions were had by me with other qualified healthcare professionals as indicated for the patient's care. As soon sign off from day shift doctor at 7:00 p.m. Patient's physical exam shows no acute distress, lungs clear to auscultation abdomen is soft, nontender. Chest x-ray shows no acute cardiopulmonary pathology. Doubt pneumonia without CHF. The patient's shows no acute ischemic changes. Doubt STEMI. Doubt NSTEMI. White blood cell count slightly elevated. Suspect viral syndrome. Electrolytes within normal limits. Doubt electrolyte derangement. Re-evaluation: Upon re-evaluation, patient improved with supportive care. Discussed ED workup with patient. Recommend close primary care follow-up. Return precautions given. Invited and answered all questions prior to discharge. Patient agree with plan. We will prescribe steroids for throat as well as magic mouthwash and prescription strength ibuprofen DX & DISP Disposition: Discharge Departure Impression: Primary Impression: Acute viral syndrome Additional Impression: Acute pharyngitis Condition: Stable Scripts Lidocaine HCl (Magic Mouthwash [Maalox/Lidocaine/Nystatin]) 200 Mg-200 Mg-20 Mg/5 Ml Soln 15 ML PO TID for 7 Days, #355 ML 0 Refills Prov: PAULA RIZZO DO 08/09/24 Ibuprofen (Ibuprofen 800 mg Tab) 800 Mg Tab 1 TAB PO TID for pain for 7 Days, #30 TAB 0 Refills Prov: PAULA RIZZO DO 08/09/24 Prednisone (Prednisone) 50 Mg Tablet 50 MG PO DAILY for 5 Days, #5 TAB 0 Refills Prov: PAULA RIZZO DO 08/09/24 Additional Instructions: Please return to the emergency department immediately if you develop inability or drink, continuous nausea and vomiting, shortness of breath, productive cough, becomes suddenly weak or lethargic, chest pain. Please follow up with primary care physician in the next 3-4 days. Viral illnesses should last about seven days from onset of symptoms. Referrals: MIGUEL KENNY MD (PCP) Time of Disposition: 20:26 DELMY HDEZ MD Aug 09, 2024 18:28 PAULA RIZZO DO Aug 09, 2024 20:27
--- NOTE | 2024-08-09 18:49 | EKG ---
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 : 1970 Requested By: DELMY HDEZ Order Number: [id number] Reading MD: Suad Palomares Measurements Intervals [place] Rate: 96 P: 40 GA: 123 QRS: -11 QRSD: 70 T: -29 QT: 345 QTc: 435 Interpretive Statements Sinus rhythm Borderline T abnormalities, diffuse leads No previous ECG available for comparison Electronically Signed On 08-10-2024 10:08:59 [employer] by Suad Palomares Please click the below link to view image of tracing.
[2024-08-09] MEDS: 0.9%NACL 1000ML 1,000 ML IV ONE (19:01)
[2024-08-09 19:02] LABS: BASOPHILS # (AUTO) 0.03 K/uL (0.00-0.20); BASOPHILS % (AUTO) 0.2 % (0.0-5.0); EOSINOPHILS # (AUTO) 0.03 K/uL (0.00-0.70); EOSINOPHILS % (AUTO) 0.2 % (0.0-8.0); HEMATOCRIT 44.6 % (42-54); IMMATURE GRANULOCYTE ABSOLUTE 0.05 K/uL (0-1); LYMPHOCYTES # (AUTO) 0.9 K/uL (1.0-4.8); LYMPHOCYTES % (AUTO) 7.3 % (21.0-51.0); MEAN CORPUSCULAR HEMOGLOBIN 32.7 pg (27.0-33.0); MEAN CORPUSCULAR HGB CONC 33.6 g/dL (32.0-36.0); MEAN CORPUSCULAR VOLUME 97.2 fL (79-99); MONOCYTES # (AUTO) 0.8 K/uL (0.1-1.0); MONOCYTES % (AUTO) 6.5 % (3.0-13.0); NEUTROPHILS # (AUTO) 10.7 K/uL (1.8-7.7); NEUTROPHILS % (AUTO) 85.4 % (40.0-77.0); PLATELET COUNT (AUTO) 418 K/uL (130-400); RED BLOOD CELL COUNT(AUTO) 4.59 MIL/uL (4.50-6.20); RED CELL DISTRIBUTION WIDTH 11.7 % (11.0-15.5); WHITE BLOOD COUNT (AUTO) 12.6 K/uL (4.8-10.8)
--- NOTE | 2024-08-09 19:04 | HMCIMG ---
Exam Type: CHEST 1VW Clinical Information: gbw Comparison: None Findings: The lungs are clear of infiltrates. The heart is normal in size. The bony and soft tissue structures of the chest are unremarkable. Impression: Clear lungs.
[2024-08-09 19:15] LABS: CREATININE 0.9 mg/dL (0.5-1.3); POTASSIUM 3.9 mmol/L (3.5-5.1)
[2024-08-09 19:19] LABS: ALBUMIN 3.9 g/dL (3.5-5.0); BILIRUBIN,DIRECT 0.1 mg/dL (0.0-0.3); BILIRUBIN,TOTAL 0.4 mg/dL (0.2-1.0); TOTAL PROTEIN, SERUM 8.8 g/dL (6.0-8.3)
[2024-08-09 19:35] LABS: INFLUENZA TYPE A Negative For Type A (NEGATIVE); INFLUENZA TYPE B Negative For Type B (NEGATIVE)
[2024-08-09 19:37] LABS: COVID19 (SARS ANTIGEN RAPID) PRESUMPTIVE NEGATIVE (NEGATIVE)
[2024-08-09] MEDS ORDERED: MAGIC PO (20:25)
[2024-08-09] MEDS ORDERED: IBUP-2077 PO (20:25)
[2024-08-09] MEDS ORDERED: PRED50TA2 PO (20:25)
[2024-08-09 21:03] VITALS: BP 132/86; PULSE 96; RESP 18; TEMP 98.7; O2SAT 100
== END 2024-08-09 21:05 | disposition home or self-care (01) ==
LOC: EDH 17:56
DX: B34.9 Viral infection, unspecified (principal); J02.9 Acute pharyngitis, unspecified; Z20.822 Contact with and (suspected) exposure to COVID-19; Z79.899 Other long term (current) drug therapy
CPT/HCPCS: 99285; 71045; 87426; 80076; 84484; 80048; 85025; 87040 ×2; 87880; 87804 ×2; 83605; 36415; 93005; J7030